=== PATIENT | female | born 1935 | race Caucasian/White ===

== ENCOUNTER 2021-01-07 20:27 | Emergency (ER) | payer MEDICARE, BC ==
[~2021-01-07 20:27] MED LIST: METFORMIN HCL500 M2 PO
[2021-01-07 22:18] LABS: HEMOGLOBIN 14.5 gm/dl (12.3-15.3); RED BLOOD COUNT 5.22 M/UL (4.00-5.10); WHITE BLOOD COUNT 6.3 K/UL (4.5-11.0)
[2021-01-07 22:49] LABS: BUN/CREATININE RATIO 24 (0-10)
== END 2021-01-08 06:57 | disposition home or self-care (01) ==
LOC: ER1 20:27
PROVIDERS: Physician Assistant
DX: Z23 Encounter for immunization (principal); U07.1 COVID-19; Z79.01 Long term (current) use of anticoagulants
CPT/HCPCS: 70450; 71045; 72125; 80053; 82550; 82553; 83874; 84484; 85025; 85610; 85730; 93005; 99285; M0243

== ENCOUNTER 2021-01-09 07:06 | Emergency (ER) | payer MEDICARE, BC ==
[~2021-01-09] VITALS: Ht 157.5 cm; Wt 72.6 kg
[2021-01-09 10:02] LABS: HEMOGLOBIN 14.4 gm/dl (12.3-15.3); RED BLOOD COUNT 5.21 M/UL (4.00-5.10)
== END 2021-01-09 19:15 | disposition home or self-care (01) ==
LOC: ER1 07:06
PROVIDERS: Emergency Medicine
DX: U07.1 COVID-19 (principal); E87.6 Hypokalemia; E11.65 Type 2 diabetes mellitus with hyperglycemia; Z23 Encounter for immunization
CPT/HCPCS: 70450; 72125; 80053; 82962; 85025; 99285; M0243

== ENCOUNTER 2021-05-18 12:40 | Emergency (ER) | payer MEDICARE, BC ==
[2021-05-18 13:47] LABS: HEMOGLOBIN 13.1 gm/dl (12.3-15.3); RED BLOOD COUNT 4.76 M/UL (4.00-5.10)
[2021-05-18 14:11] LABS: WHITE BLOOD COUNT 11.6 K/UL (4.5-11.0)
[2021-05-18 14:28] LABS: BUN/CREATININE RATIO 35 (0-10)
== END 2021-05-18 17:40 | disposition left against medical advice (07) ==
LOC: ER1 12:40 → CDU 16:28 → ER1 17:40
PROVIDERS: Physician Assistant
DX: I48.91 Unspecified atrial fibrillation (principal); R06.02 Shortness of breath; Z20.822 Contact with and (suspected) exposure to COVID-19
CPT/HCPCS: 70450; 71045; 80053; 81001; 82550; 82553; 82962; 83874; 83880; 84484; 85025; 85610; 93005; 96374; 99285; U0002

== ENCOUNTER 2021-05-21 23:37 | Inpatient (IN) | payer MEDICARE, BC ==
[~2021-05-21] VITALS: Ht 154.9 cm; Wt 71.8 kg
[~2021-05-21 23:37] MED LIST changes: -GLUCOPHAGE 500500 MG PO; -HUMALOG100 UNIT/3 SC; -LANTUS SOL100 UNIT/1 SC; -TENORMIN 25 MG25 MG PO; -WARFARIN SODIUM4 MG PO
[2021-05-22 00:15] LABS: HEMOGLOBIN 12.8 gm/dl (12.3-15.3); RED BLOOD COUNT 4.7 M/UL (4.00-5.10); WHITE BLOOD COUNT 14.4 K/UL (4.5-11.0)
[2021-05-22 00:24] LABS: BORDETELLA PARAPERTUSSIS Not Detected (Not Detectd); BORDETELLA PERTUSSIS Not Detected (Not Detectd); CHLAMYDIA PNEUMONIAE Not Detected (Not Detectd); CORONAVIRUS HKU1 Not Detected (Not Detectd); CORONAVIRUS NL63 Not Detected (Not Detectd); CORONAVIRUS OC43 Not Detected (Not Detectd); CORONOAVIRUS 229E Not Detected (Not Detectd); HUMAN RHINOVIRUS/ENTEROVIRUS Not Detected (Not Detectd); INFLUENZA A Not Detected (Not Detectd); INFLUENZA B Not Detected (Not Detectd); MYCOPLASMA PNEUMONIAE Not Detected (Not Detectd); PARAINFLUENZA VIRUS 1 Not Detected (Not Detectd); PARAINFLUENZA VIRUS 2 Not Detected (Not Detectd); PARAINFLUENZA VIRUS 3 Not Detected (Not Detectd); PARAINFLUENZA VIRUS 4 Not Detected (Not Detectd); RESPIRATORY SYNCYTIAL VIRUS Not Detected (Not Detectd)
[2021-05-22 00:38] LABS: BUN/CREATININE RATIO 34 (0-10)
[2021-05-22 01:13] LABS: HUMAN METAPNEUMOVIRUS DETECTED (Not Detectd); SARS-CoV-2 NOT DETECTED (Not Detectd)
[2021-05-22] MEDS ORDERED: TENORMIN 25 MG25 MG PO (06:47)
[2021-05-22] MEDS ORDERED: LANTUS SOL100 UNIT/1 SC (06:48)
[2021-05-22] MEDS ORDERED: HUMALOG100 UNIT/3 SC (06:49)
[2021-05-22] MEDS ORDERED: GLUCOPHAGE 500500 MG PO (06:49)
[2021-05-22 07:37] LABS: BUN/CREATININE RATIO 37 (0-10)
[2021-05-22 07:38] LABS: HEMOGLOBIN 12.5 gm/dl (12.3-15.3); RED BLOOD COUNT 4.56 M/UL (4.00-5.10); WHITE BLOOD COUNT 13.5 K/UL (4.5-11.0)
--- NOTE | 2021-05-22 17:14 | NUR ---
STOPPED CARDIZEM FOR TRIAL TO POSSIBLY D/C FROM PT. HR IS CURRENTLY 78. TM.
[2021-05-24 04:35] LABS: BUN/CREATININE RATIO 39 (0-10)
[2021-05-25 04:51] LABS: BUN/CREATININE RATIO 46 (0-10)
[2021-05-25] MEDS ORDERED: CARVEDILOL25 MG PO (10:22)
[2021-05-25] MEDS ORDERED: DIGOXIN125 MCG PO (10:22)
[2021-05-25] MEDS ORDERED: BUMETANIDE1 MG PO (10:26)
[2021-05-25] MEDS ORDERED: LANTUS INS100 UTS/M1 SQ (10:29)
[2021-05-25] MEDS ORDERED: GLUCOPHAGE 500500 MG PO (10:32)
[2021-05-25] MEDS ORDERED: LISINOPRIL10 MG PO (10:55)
[2021-05-26 06:09] LABS: HBSAG SCREEN Negative (Negative); HEP A AB, IGM Negative (Negative); HEP B CORE AB, IGM Negative (Negative); HEP C VIRUS AB 0.1 (0.0-0.9)
[2021-05-28] MEDS ORDERED: WARFARIN SODIUM4 MG PO ×2 (09:00→17:44)
[2021-05-28] MEDS ORDERED: ATENOLOL25 MG PO (11:11)
[2021-05-29] MEDS ORDERED: DILTIAZEM 24HR180 M1 PO (13:40)
[2021-05-29] MEDS ORDERED: LANTUS INS100 UTS/M1 SQ (13:43)
== END 2021-05-25 12:05 | disposition home or self-care (01) | DRG 871 ==
LOC: ER1 23:37 → CDU 05-22 02:03 → PROG CARE 05-22 02:03
PROVIDERS: Internal Medicine; Internal Medicine Cardiovascular Disease; Physician Assistant Medical; ADMIT Emergency Medicine
PROC: B24BZZZ Ultrasonography of Heart with Aorta (ICD-10-PCS; principal; 2021-05-22)
DX: A41.89 Other specified sepsis (principal); J96.01 Acute respiratory failure with hypoxia; Z20.822 Contact with and (suspected) exposure to COVID-19; I50.33 Acute on chronic diastolic (congestive) heart failure; J12.3 Human metapneumovirus pneumonia; J15.9 Unspecified bacterial pneumonia; E87.2 Acidosis; D68.318 Other hemorrhagic disorder due to intrinsic circulating anticoagulants, antibodies, or inhibitors; N30.00 Acute cystitis without hematuria; R65.20 Severe sepsis without septic shock; I08.1 Rheumatic disorders of both mitral and tricuspid valves; E11.9 Type 2 diabetes mellitus without complications; R74.01 Elevation of levels of liver transaminase levels; I48.91 Unspecified atrial fibrillation; I11.0 Hypertensive heart disease with heart failure; Z79.01 Long term (current) use of anticoagulants; Z95.2 Presence of prosthetic heart valve; Z86.16 Personal history of COVID-19; Z79.4 Long term (current) use of insulin; Z88.5 Allergy status to narcotic agent; Z91.040 Latex allergy status; Z90.49 Acquired absence of other specified parts of digestive tract; Z90.710 Acquired absence of both cervix and uterus
CPT/HCPCS: ECHO; 36415; 36600; 71045; 71046; 80048; 80053; 80061; 80074; 82043; 82550; 82553; 82803; 82962; 83036; 83605; 83874; 83880; 84132; 84439; 84443; 84484; 85025; 85610; 87040; 87633; 93005; 93306; 94640; 94664; 94760; 96374; 96375; 99285; J0456; J0696; J1160; J2920; J2930; J7030

== ENCOUNTER → 2021-05-21 | Outpatient (CLI) | payer MEDICARE, BC ==
[~2021-05-21] MED LIST changes: +GLUCOPHAGE 500500 MG PO; +HUMALOG100 UNIT/3 SC; +LANTUS SOL100 UNIT/1 SC; +PREDNISONE 20 M20 MG PO; +TENORMIN 25 MG25 MG PO; +WARFARIN SODIUM4 MG PO
[2021-05-22 06:10] LABS: A/G RATIO 1.4 (1.2-2.2); ALKALINE PHOSPHATASE, S 117 IU/L (44-121); ALT (SGPT) 133 IU/L (0-32); AST (SGOT) 132 IU/L (0-40); BILIRUBIN, TOTAL 0.3 mg/dL (0.0-1.2); BUN 23 mg/dL (8-27); BUN/CREATININE RATIO 27 (12-28); CALCIUM, SERUM 8.9 mg/dL (8.7-10.3); CARBON DIOXIDE, TOTAL 23 mmol/L (20-29); CHLORIDE, SERUM 96 mmol/L (96-106); CHOLESTEROL, TOTAL 161 mg/dL (100-199); CREATININE, SERUM 0.84 mg/dL (0.57-1.00); EGFR IF AFRICN AM 74 (>59); EGFR IF NONAFRICN AM 64 (>59); ESTIM. AVG GLU (EAG) 235 mg/dL (.); GLOBULIN, TOTAL 2.8 g/dL (1.5-4.5); GLUCOSE, SERUM 382 mg/dL (65-99); HDL CHOLESTEROL 32 mg/dL (>39); HEMOGLOBIN A1C 9.8 % (4.8-5.6); LDL CHOLESTEROL CALC 97 mg/dL (0-99); POTASSIUM, SERUM 3.9 mmol/L (3.5-5.2); PROTEIN, TOTAL, SERUM 6.7 g/dL (6.0-8.5); SODIUM, SERUM 134 mmol/L (134-144); TRIGLYCERIDES 186 mg/dL (0-149)
== END ==
LOC: LAB 11:57
PROVIDERS: Family Medicine
DX: E11.9 Type 2 diabetes mellitus without complications (principal); I48.91 Unspecified atrial fibrillation; Z20.822 Contact with and (suspected) exposure to COVID-19; R91.8 Other nonspecific abnormal finding of lung field
CPT/HCPCS: 36415; 71046; 80053; 80061; 82043; 83036; 84443; 85610

== ENCOUNTER 2021-06-02 19:33 | Emergency (ER) | payer MEDICARE, BC ==
[~2021-06-02 19:33] MED LIST changes: +ATENOLOL25 MG PO; +BUMETANIDE1 MG PO; +CARVEDILOL25 MG PO; +DIGOXIN125 MCG PO; +DILTIAZEM 24HR180 M1 PO; +GLUCOPHAGE 500500 MG PO; +HUMALOG100 UNIT/3 SC; +LANTUS INS100 UTS/M1 SQ; +LANTUS SOL100 UNIT/1 SC; +LISINOPRIL10 MG PO; +TENORMIN 25 MG25 MG PO; +WARFARIN SODIUM4 MG PO
[2021-06-02 20:17] LABS: HEMOGLOBIN 12.2 gm/dl (12.3-15.3); RED BLOOD COUNT 4.5 M/UL (4.00-5.10); WHITE BLOOD COUNT 5.6 K/UL (4.5-11.0)
[2021-06-02 20:40] LABS: BUN/CREATININE RATIO 23 (0-10)
== END 2021-06-03 00:30 | disposition left against medical advice (07) ==
LOC: ER1 19:33
PROVIDERS: Physician Assistant
DX: R00.0 Tachycardia, unspecified (principal); R61 Generalized hyperhidrosis; I11.0 Hypertensive heart disease with heart failure; I50.9 Heart failure, unspecified; I48.91 Unspecified atrial fibrillation; E78.5 Hyperlipidemia, unspecified; Z88.5 Allergy status to narcotic agent; Z88.8 Allergy status to other drugs, medicaments and biological substances; Z91.040 Latex allergy status
CPT/HCPCS: 80048; 82550; 82553; 82962; 83874; 84484; 85025; 93005; 99283

== ENCOUNTER → 2021-07-10 | Outpatient (CLI) | payer MEDICARE, BC | LOC: RAD 15:24 | DX: Z20.822 Contact with and (suspected) exposure to COVID-19 (principal) | CPT/HCPCS: 71046 ==

== ENCOUNTER → 2021-07-14 | Outpatient (CLI) | payer MEDICARE, BC ==
[~2021-07-14] VITALS: Ht 157.5 cm; Wt 68.0 kg
== END ==
LOC: EROP 13:02
DX: U07.1 COVID-19 (principal); Z23 Encounter for immunization; E11.9 Type 2 diabetes mellitus without complications; I10 Essential (primary) hypertension; Z88.5 Allergy status to narcotic agent
CPT/HCPCS: M0247; Q0247

== ENCOUNTER → 2022-01-14 | Outpatient (CLI) | payer MEDICARE, BC ==
[2022-01-14 11:35] LABS: RED BLOOD COUNT 4.34 M/UL (4.00-5.10)
== END ==
LOC: RAD 10:15
PROVIDERS: Family Medicine
DX: R63.4 Abnormal weight loss (principal); I10 Essential (primary) hypertension; E11.65 Type 2 diabetes mellitus with hyperglycemia
CPT/HCPCS: 36415; 71046; 80053; 83036; 85025